=== PATIENT | male | born 1985 | race Caucasian/White ===

== ENCOUNTER → 2016-08-05 | Outpatient (CLI) | payer OTHER ==
--- NOTE | 2016-08-05 11:17 | KCIC ---
PROCEDURE Two-view right hip HISTORY Right hip pain for 8 or 9 months COMPARISON None FINDINGS No evidence of acute fracture. No bone lesion or bone destruction. Joint spaces are intact. Minimal enthesophyte at the at the lesser trochanter. Small pelvic calcifications on the right, most typically represent phleboliths. Surgical clips identified. IMPRESSION No acute radiographic finding Electronically signed by: Suleman Peace MD (Aug 05, 2016 11:16:23)
== END | disposition home or self-care (01) ==
LOC: KCIC 10:32
PROVIDERS: ATTEND Physician Assistant Medical
DX: M25.551 Pain in right hip (principal)
CPT/HCPCS: 73502

== ENCOUNTER → 2018-08-16 | Outpatient (CLI) | payer OTHER ==
--- NOTE | 2018-08-16 13:34 | KCIC ---
Indication:Right testicular pain. Rule out torsion. TECHNIQUE: Grayscale, color Doppler and spectral waveform is of the testicle obtained. COMPARISON:None FINDINGS: The right testicle measures 3.9 x 2.6 x 2.6 cm and is homogeneous in echogenicity without focal lesion. Right testicle demonstrates evidence of blood flow. Trace right-sided hydrocele. Small simple cyst in the epididymal head measuring 5 mm. The epididymal head measures 1.7 cm and is mildly enlarged but without hyperemia. Left testicle measures 2.7 x 3.5 x 2.0 cm and is homogeneous in echogenicity without focal lesion. Left testicle demonstrates evidence of blood flow. Trace left-sided hydrocele. The epididymis is within normal limits. IMPRESSION: 1. Bilateral testicles demonstrate evidence of blood flow. 2. No focal testicular lesion. Electronically signed by: Owen Kwong DO (08/16/2018 1:30 PM) [id number]
== END | disposition home or self-care (01) ==
LOC: KCIC US 12:38
PROVIDERS: ATTEND Family Medicine
DX: L72.0 Epidermal cyst (principal); N50.89 Other specified disorders of the male genital organs; N50.811 Right testicular pain
CPT/HCPCS: 76870